=== PATIENT | male | born 1955 | race Caucasian/White ===

== ENCOUNTER 2018-03-15 07:50 | Emergency (ER) | payer MEDICAID ==
[~2018-03-15] VITALS: Ht 177.8 cm; Wt 88.6 kg
[2018-03-15 07:51] VITALS: BP 158/78; Ht 177.8 cm; Wt 88.6 kg
[2018-03-15] MEDS ORDERED: LISINOPRIL2.5 MG PO (07:55)
[2018-03-15] MEDS ORDERED: CHILDREN'S ASPI81 MG PO (07:55)
[2018-03-15] MEDS ORDERED: PERCOCET 5-3251 TAB PO (08:40)
[2018-03-15] MEDS ORDERED: FLOMAX0.4 MG PO (08:40)
[2018-03-15 08:41] LABS: APPEARANCE HAZY (CLEAR); BILIRUBIN NEGATIVE (NEGATIVE); COLOR DK YELLOW (YELLOW); GLUCOSE NEGATIVE (NEGATIVE); KETONE NEGATIVE (NEGATIVE); NITRITE NEGATIVE (NEGATIVE); PROTEIN TRACE mg/dL (NEGATIVE); SPECIFIC GRAVITY 1.025 (1.005-1.020); UROBILINOGEN NORMAL (NORMAL)
[2018-03-15 08:42] LABS: BACTERIA MODERATE /hpf (NONE SEEN); EPITHELIAL CELLS 0-5 /hpf (0-5); MUCUS >1+ /lpf (NONE SEEN); RED CELLS - URINE >50 /hpf (0-5); WHITE CELLS - URINE 0-5 /hpf (0-5)
== END 2018-03-15 08:51 | disposition home or self-care (01) ==
LOC: D.ER 07:50
PROVIDERS: Emergency Medicine
DX: N20.1 Calculus of ureter (principal); I10 Essential (primary) hypertension

== ENCOUNTER 2018-10-11 22:20 | Observation (INO) | payer MEDICARE ==
[~2018-10-11] VITALS: Ht 177.8 cm; Wt 88.6 kg
--- NOTE | ~2018-10-11 | HEMODYNAMI ---
PATIENT:JOSUÉ SUÁREZ MEDICAL RECORD: [id number] : 51 LOCATION:[facility] D212 ADMISSION DATE: 10/11/18 Generatedon:10/12/20189:23 Patient name: JOSUÉ SUÁREZ Patient #: [id number] SSN: DO B: 1955 Date of study: 10/12/2018 Page: Of Hemodynamic Procedure Report Patient Data Patient Demographics Procedure consent was obtained First Name: JOSUÉ Gender: Male Last Name: JOSE ARMANDO : 1955 Patient #: [id number] Age: 63 year(s) Race: Unknown Additional ID: [id number] Contact details [address]: [address] [place] [address] State: [place] City: [facility] Zip code: [address] Admission Admission Data Admission Date: 10/11/2018 Admission Time: 23:14 [facility] Weight (lbs.): 196.21 Weight (kg.): 89 Procedure Procedure Types Cath Procedure Diagnostic Procedure LHC LHC w/Coronaries w/Grafts FFR/IVUS Intra-Coronary IVUS Initial PCI Procedure AMI/SVG/ORDER SELECTOR PTCA or Stent SVG-BMS/URSULA Initial Procedure Description Procedure Date Procedure Date: 10/12/2018 Procedure Start Time: 8:57 Procedure End Time: 9:22 Procedure Staff Name Function Emory Gurrola MD Performing Physician Troy Meeks RT Monitor Heaven Thompson RT Scrub Darlin Valadez RN Nurse Procedure Data Cath Procedure Fluoroscopy Diagnostic fluoroscopy Total fluoroscopy Time: 5.8 time: 5.8 min min Diagnostic fluoroscopy Total fluoroscopy dose: 891 dose: 891 mGy mGy Contrast Material Contrast Material Type Amount (ml) Isovue 300 93 Entry Location Entry Primary Successful Side Size Upsize Upsize Entry Closure Succes sful Closure Location (Fr) 1 (Fr) 2 (Fr) Remarks Device Remarks Femoral Right 6 Fr Exoseal artery Short Estimated blood loss: 10 ml Diagnostic catheters Device Type Used For End Catheter Placement MULTIPACK Pigtail 5 Fr Procedure catheter MULTIPACK JL 4.0 5Fr Procedure catheter MULTIPACK 3DRC 5Fr Procedure catheter DIAGNOSTIC AR2 MOD 5 Fr Procedure catheter ([id number]) Procedure Complications No complications Procedure Medications Medication Administration Route Dosage 0.9% NaCl I.V. 100 ml/hr Oxygen etCO2 Nasal cannula 2 l/min Lidocaine 2% added to field 20 Heparin Flush Bag added to field 2 bags (1000units/500ml NS) Versed I.V. 2 mg Fentanyl I.V. 50 mcg Fentanyl I.V. 50 mcg Heparin Bolus I.V. 4000 units Hemodynamics Rest Heart Rate: 70 (bpm) Pressure Samples Time Site Value (mmHg) Purpose Heart Use Rate(bpm) 9:03 AO 142/81(108) Snapshot 76 Snapshots Pre Cath Intra NCS Post Cath Vital Signs Time Heart Resp SPO2 etCO2 NIBP (mmHg) Rhythm Pain Sedation Rate (ipm) (%) (mmHg) Status Level (bpm) 8:47:04 69 18 100 30 146/96(129) NSR 0 (11) 10(A) , No pain 8:51:22 64 12 100 29.8 151/91(140) NSR 0 (11) 10(A) , No pain 8:55:42 69 13 99 22.9 162/106(143) NSR 0 (11) 10(A) , No pain 8:59:54 80 13 98 36 152/99(126) NSR 0 (11) 10(A) , No pain 9:04:10 77 15 99 36 144/93(129) NSR 0 (11) 9(A) , No pain 9:08:24 75 10 100 36 142/93(130) NSR 0 (11) 9(A) , No pain 9:12:38 74 16 99 35.2 142/96(125) NSR 0 (11) 9(A) , No pain 9:16:54 81 11 100 23 147/100(135) NSR 0 (11) 10(A) , No pain 9:21:08 75 10 99 33.7 141/92(127) NSR 0 (11) 10(A) , No pain Medications Time Medication Route Dose Verified Delivered Reason Notes Effectiveness by by 8:46:01 0.9% NaCl I.V. 100 Emory Saeed used for ml/hr Izabela Valadez casting house worker 8:46:08 Oxygen etCO2 2 Emory Darlin used for Nasal l/min Izabela Valadez procedure cannula RN 8:46:12 Lidocaine 2% added 20ml Emory Cat for local to vial Izabela Gurrola MD anesthetic field 8:46:17 Heparin Flush added 2 Emory Rodriguezrey used for Bag to bags Izabela Gurrola MD procedure (1000units/500ml field NS) 8:56:34 Versed I.V. 2 mg Emory Darlin for sedation Izabela Valadez RN 8:56:40 Fentanyl I.V. 50 Emory Darlin for sedation mcg Izabela Valadez RN 9:00:52 Fentanyl I.V. 50 Emory Darlin for sedation mcg Izabela Valadez RN 9:12:00 Heparin Bolus I.V. 4000 Emory Darlin for verifi ed units Izabela Valadez anticoagulation with Dr. ELICEO Gurrola Procedure Log Time Note 8:24:34 Signed procedure consent form obtained from patient. 8:24:35 Time tracking: Regular hours (M-F 7:00 - 5:00) 8:24:39 Plan of Care:Hemodynamics will remain stable., Cardiac rhythm will remain stable., Comfort level will be maintained., Respiratory function will remain adequate., Patient/ family verbilizes understanding of procedure., Procedure tolerated without complication., Recovers from procedure without complications.. 8:28:27 Troy Meeks RT(R) sent for patient. Start room use. 8:40:24 Patient received from Med II to CCL 1 Alert and oriented. Tansferred to table in Supine position. 8:40:27 Warm blankets applied, and dori hugger turned on for patient comfort. 8:40:27 Correct patient and procedure confirmed by team. 8:40:28 ECG and BP/O2 sat monitors applied to patient. 8:45:52 Vital chart was started 8:46:01 0.9% NaCl 100 ml/hr I.V. was administered by Darlin Valadez RN; used for procedure; 8:46:08 Oxygen 2 l/min etCO2 Nasal cannula was administered by Darlin Valadez RN; used for procedure; 8:46:12 Lidocaine 2% 20ml vial added to field was administered by Emory Gurrola MD; for local anesthetic; 8:46:17 Heparin Flush Bag (1000units/500ml NS) 2 bags added to field was administered by Emory Gurrola MD; used for procedure; 8:55:24 Baseline sample Acquired. 8:55:27 Rhythm: sinus rhythm 8:55:28 Full Disclosure recording started 8:55:32 H&P Date Dictated: 10/12/2018 Within 30 days and on chart.. 8:55:32 Pre-procedure instructions explained to patient. 8:55:33 Pre-op teaching completed and patient verbalized understanding. 8:55:34 Family in patients room. 8:55:35 Patient NPO since Midnight. 8:55:36 Is the patient allergic to Iodine/contrast media? No. 8:55:38 Is patient on blood thinner?No 8:55:40 Patient diabetic? No. 8:55:43 Previous problem with sedation/anesthesia? No ? 8:55:43 Snore? Yes 8:55:44 Sleep apnea? No 8:55:45 Deviated septum? No 8:55:46 Opens mouth fully? Yes 8:55:47 Sticks out tongue? Yes 8:55:51 Airway obstruction? No ? 8:55:53 Dentures? No ? 8:55:55 Pre procedure: right dorsailis pedis pulse 1+ Palpable, but thready & weak; easily obliterated 8:55:57 Patient pain scale 3/10 Physician notified.. 8:56:03 IV patent on arrival in left forearm with 0.9% NaCl at O. 8:56:06 Lab results completed and on chart. 8:56:08 Right groin area was prepped with chlora-prep and draped in sterile fashion 8:56:09 Alarms reviewed by R. N. 8:56:09 Sharps counted by scrub and verified by R.N. 8:56:10 --------ALL STOP TIME OUT------ 8:56:11 Final Timeout: patient, procedure, and site verified with staff and physician. All members of the team are in agreement. 8:56:13 Right groin site verified by team. 8:56:17 Fire Safety Assessment: A--An alcohol-based skin anteseptic being used preoperatively., C--Open oxygen or nitrous oxide is being used., D--An ESU, laser, or fiber-optic light is being used. 8:56:20 Physical assessment completed. ASA score P 2 - A patient with mild systemic disease as per Emory Gurrola MD. 8:56:22 Sedation plan: IV Moderate Sedation Medication:Versed, Fentanyl 8:56:33 Use device set Femoral Dx 8:56:34 Versed 2 mg I.V. was administered by Darlin Valadez RN; for sedation; 8:56:35 Tegaderm 4 x 4 (1626W) opened to sterile field. 8:56:36 ACIST Manifold (60320) opened to sterile field. 8:56:36 ACIST Hand Control (55823) opened to sterile field. 8:56:38 ACIST Syringe (84099) opened to sterile field. 8:56:38 Bag Decanter (2002S) opened to sterile field. 8:56:39 Medline Cath Pack ([id number]) opened to sterile field. 8:56:39 DIAGNOSTIC WIRE .035 260cm J wire (300657) opened to sterile field. 8:56:40 Fentanyl 50 mcg I.V. was administered by Darlin Valadez RN; for sedation; 8:56:40 DIAGNOSTIC Multipack 5Fr catheter set (AF0350) opened to sterile field. 8:56:49 SHEATH 6FR [place] (BRT073) opened to sterile field. 8:56:56 Procedure started. 8:57:00 Local anesthetic to right femoral artery with Lidocaine 2% by Emory Gurrola MD.INITIAL ACCESS ONLY 8:58:02 A 6 Fr Short sheath was inserted into the Right Femoral artery 8:58:47 Patient Weight : 196.21 lbs 8:58:55 A MULTIPACK Pigtail 5 Fr catheter was advanced over the wire and used for Procedure. 8:59:29 LV angiography performed. 8:59:31 LV gram done using GLORIA 8:59:37 EF : 20 % 8:59:45 Injector settings: Ml/sec: 10, Volume: 20, 8:59:47 Catheter removed. 8:59:50 A MULTIPACK JL 4.0 5Fr catheter was advanced over the wire and used for Procedure. 9:00:27 LCA angiography performed. 9:00:52 Fentanyl 50 mcg I.V. was administered by Darlin Valadez RN; for sedation; 9:01:12 Catheter removed. 9:01:17 A MULTIPACK 3DRC 5Fr catheter was advanced over the wire and used for Procedure. 9:01:39 TRAN to LAD angiography performed. 9:02:28 SVG to RCA angiography performed. 9:02:30 Catheter removed. 9:02:45 A DIAGNOSTIC AR2 MOD 5 Fr catheter (807851Y) was advanced over the wire and used for Procedure. 9:03:25 RCA closed. 9:05:37 SVG to RCA angiography performed. 9:05:42 Catheter removed. 9:05:45 Use device set [facility] PCI 9:05:50 CHOICE PT Extra Support 182cm wire ([id number]) opened to sterile field. 9:05:52 INFLATOR Merit BasixCompak (EN9017) opened to sterile field. 9:05:58 [place] Eagley[place] IVUS Catheter (88780K) opened to sterile field. 9:07:09 GUIDE 6FR AR 2.0 SH catheter ([id number]) opened to sterile field. 9:07:54 6 Fr AR 2 SH guide catheter was inserted over the wire 9:08:03 CPTXS wire advanced. 9:08:25 Wire advanced across lesion. 9:08:29 IVUS catheter advanced over wire. 9:10:28 IVUS pass to SVG RCA lesion perfomed. 9:10:29 IVUS catheter removed over wire. 9:12:00 Heparin Bolus 4000 units I.V. was administered by Darlin Valadez RN; for anticoagulation; verified with Dr. Gurrola 9:14:11 Place stent Inflation Number: 1 A REBA RX 5.0 x 26 stent ([id number]) was prepped and advanced across the Aorta Right -> Dist RCA. The stent was deployed at 13 CHANELL for 0:10 (min:sec). 9:14:34 EXOSEAL 6Fr (EX600) opened to sterile field. 9:14:45 Stent catheter was removed intact over wire. 9:14:45 Wire removed. 9:14:46 Guide catheter removed. 9:14:54 Sheath removed intact; hemostasis achieved with Exoseal to the Right Femoral artery. 9:14:56 Procedure ended.(Physican Out) 9:15:22 Fluoroscopy time 05.80 minutes. 9:15:26 Fluoroscopy dose: 891 mGy 9:15: Flurop Dose total: 891 9:15:30 Contrast amount:Isovue 300 93ml. 9:15:32 Sharps counted by scrub and verified by R.N. 9:20:25 Insertion/operative site no bleeding no hematoma. 9:20:27 Post-op/insertion site Right Femoral artery dressed using a 4 x 4 and Tegaderm. 9:20:28 Post Procedure Pulses reassessed and unchanged 9:20:32 Post procedure rhythm: unchanged. 9:20:35 Estimated blood loss: 10 ml 9:20:37 Post procedure instruction explained to patient.Patient verbalizes understanding. 9:20:37 Patient needs reinforcement of post procedure teaching. 9:20:52 Procedure type changed to Cath procedure, Diagnostic procedure, LHC, LHC w/Coronaries w/Grafts, FFR/IVUS, Intra-Coronary IVUS Initial, PCI procedure, AMI/SVG/ORDER SELECTOR PTCA or Stent, SVG-BMS/URSULA Initial 9:20:53 Procedure and supply charges have been captured, reviewed, submitted and are correct. 9:20:56 Procedure Complication : No complications 9:21:19 Vital chart was stopped 9:21:20 See physician's report for complete and final results. 9:21:47 Report given to Pre/Post Procedure Room. 9:22:28 Patient transfered to Pre/Post Procedure Room with Bed. 9:22:36 Procedure ended. 9:22:36 Full Disclosure recording stopped 9:22:42 End room use (Document Last) Intervention Summary Intervention Notes Time ActionType Lesion and Equipment Used Action# Pressure Duration Attributes 9:14:11 Place stent Aorta Right REBA RX 5.0 x 1 13 00:10 -> Dist RCA 26 stent ([id number]) Device Usage Item Name Manufacture Quantity Catalog Number Hospital Part Current M inimal Lot# / Charge Number Stock Stock Serial# Code Tegaderm 4 x 4 3M 1 1626W [id number] 424596 667255 5 (1626W) ACIST Manifold Acist 1 22126 576763 076758 540826 5 (64226) Medical Systems Inc ACIST Hand Acist 1 09501 648653 791313 816969 5 Control Medical (80249) Systems Inc ACIST Syringe Acist 1 61677 512676 354434 271322 2 0 (09450) Medical Systems Inc Bag Decanter Microtek 1 2002S 238018 99834 134751 5 () Medical Inc. Medline Cath Medline 1 [id number] 646613 17363 929141 5 Pack ([id number]) DIAGNOSTIC [place] Oliver 1 659885 752313 389422 725732 3 0 WIRE .035 260cm J wire (461158) DIAGNOSTIC Cardinal 1 QQ5802 067267 28314 164155 3 0 Multipack 5Fr Health catheter set (IP9409) SHEATH 6FR Terumo 1 NCH006 599665 587617 560348 4 0 [place] (XTX159) MULTIPACK Cardinal 1 354753 5 Pigtail 5 Fr Health catheter MULTIPACK JL Cardinal 1 031767 5 4.0 5Fr Health catheter MULTIPACK 3DRC Cardinal 1 831397 5 5Fr catheter Health DIAGNOSTIC AR2 Cardinal 1 [id number] 372537 865135 985558 2 0 MOD 5 Fr Health catheter (345728R) CHOICE PT [place] 1 [id number] 131869 323348 964548 5 Extra Support Scientific 182cm wire ([id number]) INFLATOR Merit Merit 1 BV1444 764321 210921 379155 1 5 Runteq (EX6822) [place] 1 37316C 306069 847083 324953 8 [place] E[place] IVUS Catheter (89492Y) GUIDE 6FR AR Medtronic 1 [id number] 455656 60826 083222 1 2.0 SH catheter ([id number]) REBA RX 5.0 x Medtronic 1 [id number] 721843 2315928 156189 5 [id number] 26 stent ([id number]) EXOSEAL 6Fr Cardinal 1 EX600 105679 602839 314919 1 0 (EX600) Health Signature Audit [place] Stage Time Signature Unsigned Intra-Procedure 10/12/2018 Troy Meeks 9:22:57 AM RT(R) Signatures Monitor : Troy Meeks RT Signature : Date : Time : [facility] [address] [place] [address]
[~2018-10-11 22:20] MED LIST: CHILDREN'S ASPI81 MG PO; FLOMAX0.4 MG PO; LISINOPRIL2.5 MG PO; PERCOCET 5-3251 TAB PO
[2018-10-11 22:26] VITALS: BP 183/105
[2018-10-11 22:35] LABS: BASOPHILS 0.3 % (0-2); EOSINOPHILS 2.3 % (0-7); HEMATOCRIT 44.7 % (42.0-54.0); HEMOGLOBIN 15.7 g/dL (13.5-17.5); IMMATURE GRANULOCYTES 0.1 % (0-5); LYMPHOCYTES 48.1 % (15-50); MCH 32.6 pg (26.0-34.0); MCHC 35.1 g/dL (31.0-37.0); MCV 92.7 fL (80.0-100.0); MEAN PLATELET VOLUME 11.5 fL (7.4-10.4); MONOCYTES 9.8 % (2-11); NEUTROPHILS 39.4 % (40-80); PLATELET COUNT 185 10x3/uL (130-400); RBC 4.82 10x6/uL (4.20-6.10); RDW 12.9 % (11.5-14.5); WBC 7.7 10x3/uL (4.8-10.8)
[2018-10-11 22:45] LABS: INR 1.12 (0.85-1.17); PROTIME 13.9 SECONDS (11.6-15.0)
[2018-10-11 22:46] LABS: APTT 28.9 SECONDS (22.8-39.4)
[2018-10-11 22:49] LABS: ALBUMIN 3.9 g/dL (3.4-5.0); ALKALINE PHOSPHATASE 85 U/L (46-116); ALT (SGPT) 28 U/L (10-68); BILIRUBIN - TOTAL 0.61 mg/dL (0.2-1.3); CALC OSMOLALITY 289 mosm/kg (275-300); CARBON DIOXIDE 29.1 mmol/L (21.0-32.0); CHLORIDE - SERUM 105 mmol/L (98-107); CREATININE - SERUM 1.3 mg/dL (0.6-1.3); GLUCOSE 112 mg/dL (74-106); POTASSIUM - SERUM 3.9 mmol/L (3.5-5.1); PROTEIN - SERUM 7.4 g/dL (6.4-8.2); SODIUM 144 mmol/L (136-145); UREA NITROGEN 19 mg/dL (7-18); eGFR NON AFRICAN AMERICAN 59 mL/min (90-120)
[2018-10-11 22:57] LABS: CKMB 1.7 U/L (0.0-3.6); CREATINE KINASE 81 UL (21-232); MAGNESIUM - SERUM 2.2 mg/dL (1.8-2.4); TROPONIN-I < 0.017 ng/mL (0.000-0.060)
[2018-10-12 00:35] VITALS: BP 148/87
[2018-10-12 00:42] VITALS: BP 140/87; BMI 27.7
--- NOTE | 2018-10-12 03:30 | NUR ---
RECIEVED REPORT FROM ER. ARRIVEE TO THE FLOOR IN W/C WITH STAFF AND FAMILY. ALERT AND ORIENTED X4. IV TO LEFT AC SL.. STATES PAIN AT 3. REFUSES ANY PAIN MEDICATION. UP AD JOSE TO B/R. EXPLAINED CARDIAC CONSULT AND NPO STATUS. ORIENTED TO ROOM AND MEAL TIMES. ASSESSMENT COMPLETED. TE;EMETRY IN PLACE. DENIES ANY OTHER NEEEDS. WILL CONT. POC.
[2018-10-12 03:50] VITALS: BP 147/90
[2018-10-12 05:58] LABS: CKMB 99.3 U/L (0.0-3.6)
[2018-10-12 06:01] LABS: CREATINE KINASE 691 UL (21-232)
[2018-10-12 06:04] LABS: TROPONIN-I 26.026 ng/mL (0.000-0.060)
[2018-10-12 08:25] VITALS: BP 165/94
[2018-10-12 08:30] LABS: BASOPHILS 0.1 % (0-2); HEMATOCRIT 43.7 % (42.0-54.0); HEMOGLOBIN 15.2 g/dL (13.5-17.5); IMMATURE GRANULOCYTES 0.1 % (0-5); LYMPHOCYTES 19.9 % (15-50); MCH 32.3 pg (26.0-34.0); MCHC 34.8 g/dL (31.0-37.0); MCV 92.8 fL (80.0-100.0); MEAN PLATELET VOLUME 12.2 fL (7.4-10.4); NEUTROPHILS 69.9 % (40-80); PLATELET COUNT 172 10x3/uL (130-400); RBC 4.71 10x6/uL (4.20-6.10); WBC 9.5 10x3/uL (4.8-10.8)
--- NOTE | 2018-10-12 08:30 | NUR ---
PT TO LIFT MECHANIC VIA BED
[2018-10-12 08:49] LABS: CALC OSMOLALITY 281 mosm/kg (275-300); CALCIUM 8.6 mg/dL (8.5-10.1); CARBON DIOXIDE 22.3 mmol/L (21.0-32.0); CHLORIDE - SERUM 105 mmol/L (98-107); GLUCOSE 110 mg/dL (74-106); POTASSIUM - SERUM 3.9 mmol/L (3.5-5.1); SODIUM 140 mmol/L (136-145); UREA NITROGEN 18 mg/dL (7-18); eGFR NON AFRICAN AMERICAN 80 mL/min (90-120)
--- NOTE | 2018-10-12 09:36 | NUR ---
RECEIVED PT BACK FROM AIR HOIST OPERATOR VIA BED DROWSY ANSWERS APPROPRIATEY VSS RT GROIN SANDEEG C/D/I AT BEDSIDE NAD NOTED WILL CONTINUE TO MONITOR
[2018-10-12 11:36] LABS: CKMB 127.5 U/L (0.0-3.6)
[2018-10-12 11:43] LABS: CREATINE KINASE 861 UL (21-232); TROPONIN-I 34.863 ng/mL (0.000-0.060)
--- NOTE | 2018-10-12 14:00 | NUR ---
BEDREST UP PT SITTNG UP RT GROIN DRSG C/D/I RT PEDAL PULSE PALPABLE PT DENIES ANY NEEDS OR DISCOMFORT AT THIS TIME
[2018-10-12 14:03] VITALS: Ht 177.8 cm; Wt 88.6 kg
[2018-10-12 15:41] VITALS: BP 132/81
--- NOTE | 2018-10-12 19:24 | NUR ---
RECIEVED SITTING UP ON SIDE OF BED EATING WITH HIS SPOUSE. ALERT AND ORIENTED X4. DSG TO RIGHT GROIN CDI. DENIES ANY PAIN OR NEEDS AT THISTIME. WILL CONT. POC.
[2018-10-12 20:00] VITALS: BP 122/77
[2018-10-13] VITALS: BP 126/75
[2018-10-13 04:00] VITALS: BP 120/75
[2018-10-13 05:23] LABS: BASOPHILS 0.2 % (0-2); EOSINOPHILS 1.3 % (0-7); HEMATOCRIT 42.5 % (42.0-54.0); HEMOGLOBIN 14.9 g/dL (13.5-17.5); IMMATURE GRANULOCYTES 0.1 % (0-5); LYMPHOCYTES 20.6 % (15-50); MCH 32.4 pg (26.0-34.0); MCHC 35.1 g/dL (31.0-37.0); MCV 92.4 fL (80.0-100.0); MEAN PLATELET VOLUME 11.9 fL (7.4-10.4); NEUTROPHILS 64.8 % (40-80); PLATELET COUNT 164 10x3/uL (130-400); RDW 13.1 % (11.5-14.5); WBC 8.4 10x3/uL (4.8-10.8)
[2018-10-13 05:44] LABS: ANION GAP 10.6 mmol/L (8-16); CALCIUM 8.4 mg/dL (8.5-10.1); CREATININE - SERUM 1.2 mg/dL (0.6-1.3); POTASSIUM - SERUM 3.8 mmol/L (3.5-5.1)
[2018-10-13 05:46] LABS: CARBON DIOXIDE 29.2 mmol/L (21.0-32.0)
[2018-10-13 07:35] VITALS: BP 113/71
--- NOTE | 2018-10-13 07:45 | NUR ---
ASSESSMENT COMPLETED. ALERT AND ORIENTED. TELEMERTY SHOWS SR. LEFT AC SL. RIGHT GROIN SOFT WITH DRSG DRY AND INTACT. NO NEEDS VOICED
--- NOTE | 2018-10-13 09:17 | NUR ---
RESTING QUIETLY NAD NOTED
[2018-10-13 10:50] VITALS: BP 117/71
[2018-10-13] MEDS ORDERED: PLAVIX75 MG PO (12:24)
[2018-10-13] MEDS ORDERED: PRAVACHOL20 MG PO (12:25)
[2018-10-13] MEDS ORDERED: COREG 3.1253.125 MG PO (12:25)
--- NOTE | 2018-10-13 12:57 | NUR ---
PT DISCHARGED. IV DCD WITH TIP INTACT. INSTRUCTIONS GIVEN TO PT. TO PRIVATE CAR PER WHEEL CHAIR.
--- NOTE | 2018-10-14 10:38 | MORECARE ---
CASE MANAGEMENT DISCHARGE SUMMARY PATIENT: JOSUÉ SUÁREZ UNIT: [id number] ADM DATE: 10/11/18 AGE: 63 : [birth year] SEX: M ROOM/BED: D.2122 AUTHOR: IMELDA MCKEE PHYSICIAN: REFERRING PHYSICIAN: SCARLETT CARRASCO MD DATE OF SERVICE: 10/14/18 Discharge Plan Patient Name: JOSUÉ SUÁREZ [facility] [facility] 1955 Planned Disposition: Home Anticipated Discharge Date: 10/14/18 Discharge Date: 10/13/2018 Expected LOS: 3 Initial Reviewer: [email or web address] Initial Review Date: 10/14/2018 Generated: 10/14/18 11:38 am Patient Name: JOSUÉ SUÁREZ Page 51443 at 1038 All edits/amendments must be made on the electronic document DICTATION DATE: 10/14/18 1038 COMPOUND COATING MACHINE OFFBEARER: JORGE 10/14/18 1038 RPT#: [id number] DC DATE:10/13/18 STATUS: DIS IN [facility] [address] [place] [address] END OF REPORT
--- NOTE | 2018-10-15 10:45 | OP ---
PATIENT NAME: JOSUÉ SUÁREZ MEDICAL RECORD: [id number] :51 LOCATION:D.M2 D.2122 ADMISSION DATE:10/11/18 SURGEON: RONALD LIPSCOMB MD DATE OF OPERATION: 10/12/2018 PROCEDURES: 1. PTCA stent vein graft to RCA. 2. Intravascular ultrasound. 3. Left heart catheterization. 4. Selective coronary angiography. 5. Vein graft angiography. 6. TRAN angiography. 7. Left ventriculogram. INDICATION: Non-Q-wave myocardial infarction. DESCRIPTION OF PROCEDURE: After informed consent was obtained and after a detailed explanation of risks, benefits as well as alternative therapies, the patient elected to proceed with angiogram and angioplasty. The right femoral area was prepped and draped in normal sterile fashion. Right femoral artery was cannulated via modified Seldinger technique with placement of 6-English sheath. All catheters exchanged through this sheath. FINDINGS: Left ventriculogram was performed in standard 30-degree GLORIA view, reveals anteroapical hypokinesis. Overall ejection fraction estimated at 25%. SELECTIVE CORONARY ANGIOGRAPHY: 1. Left main is with no significant angiographic disease. 2. Left circumflex has no significant angiographic disease. 3. Left anterior descending has previously placed stents with 80% stenosis after the previously placed stents. 4. TRAN to the distal LAD is widely patent. Distal LAD is widely patent. 5. The right coronary has previously placed stents, these are closed at the ostium. 6. Vein graft to the right coronary is patent; however, there is 75% stenosis in the proximal shaft of the vein graft confirmed by intravascular ultrasound. PTCA STENT OF THE VEIN GRAFT TO THE RCA: The stent used was a 5.0 x 26-mm Cuau[place]emoc. Result was 0% residual stenosis. OVERALL IMPRESSION: Successful percutaneous transluminal coronary angioplasty stent of the vein graft to the right coronary artery going from greater than 75% initial stenosis to 0% residual. TRANSINT:[id number] Voice Confirmation ID: [id number] DOCUMENT ID: [id number] RONALD LIPSCOMB MD at 1045 CC: [id number] DICTATION DATE: 10/12/18919 PEPPER PICKER: 10/12/18940 DIS IN 10/13/18 [place] [address]
--- NOTE | 2018-10-15 10:45 | CN ---
PATIENT NAME:JOSUÉ SUÁREZ MEDICAL RECORD: [id number] : 51 LOCATION:. D.2122 ADMIT DATE: 10/11/18 ACCOUNT: [id number] CONSULTING PHYSICIAN: RONALD LIPSCOMB MD REFERRING PHYSICIAN: SCARLETT CARRASCO MD DATE OF CONSULTATION: 10/12/2018 CARDIOLOGY CONSULTATION DATE OF SERVICE: 10/12/2018 DIAGNOSES: 1. Non-Q-wave myocardial infarction. 2. Coronary artery disease. 3. Status post coronary bypass graft surgery. 4. Hypertension. HISTORY OF PRESENT ILLNESS: This is a gentleman with a past history of coronary artery disease, status post coronary artery bypass graft surgery 2-1/2 years ago, who presents last night with chest discomfort. His troponin is now elevated. REVIEW OF SYSTEMS: The patient reports easy bruising but reports no swollen glands. The patient reports no fever, no night sweats, no significant weight gain, no significant weight loss. No significant exercise tolerance. The patient reports no dry eyes, no irritation, no vision change. Patient reports no difficulty hearing and no ear pain. Patient reports no frequent nose bleeds or nose and sinus problems. Patient reports on arm pain on exertion. No shortness of breath while lying down. No history of heart murmur. Patient reports no cough, no wheezing or coughing up blood. Patient reports no abdominal pain, no vomiting. Normal appetite. No diarrhea and not vomiting blood. No nausea and no constipation. Patient reports no incontinence. No difficulty urinating. No hematuria. No increased frequency. Patient reports no muscle aches. No weakness, no arthralgias, no back pain. No swelling of the extremities. Patient reports no abnormal mole, no jaundice, no rashes. Reports no loss of consciousness. No weakness and no numbness. No seizures, dizziness, or headaches. The patient reports no depression, no sleep disturbance, feeling safe in a relationship and no alcohol abuse. Patient reports on fatigue. Reports no runny nose or sinus pressure. No itching, no hives, and no frequent sneezing. PHYSICAL EXAMINATION: GENERAL APPEARANCE: Well-nourished, well-developed, appears stated age. Level of distress, comfortable. PSYCHIATRIC: Mental status, alert, normal affect. Orientation, oriented to time, place and person. EYES: Lids and conjunctiva, noninjected. No discharge, no pallor. ENT: Lips, teeth, gums, normal dentition. Oropharynx, no cyanosis, no pallor. NECK: Carotid arteries, bilateral normal upstroke, no bruits, no thrills. JUGULAR VEINS: No jugular venous pressure or distention. CERVICAL LYMPH NODES: Nontender, nonenlarged. THYROID: Not enlarged. Nontender. No nodules. LUNGS: Respiratory effort, unlabored. CHEST: Normal curvature. No thoracic deformity. No chest wall tenderness. Percussion, resonant. Auscultation, clear. No wheezes, no rales, no rhonchi. CONSULT REPORT [id number] JOSUÉ SUÁREZ CARDIOVASCULAR: Precordial exam, nondisplaced. No heaves or pericardial thrills. Rate and rhythm, regular. Heart sounds, normal S1, normal S2. No S3, no gallop, no rub. Systolic murmur, not heard. Diastolic murmur, not heard. EXTREMITIES: No cyanosis, no edema. Peripheral pulses, full and equal in all extremities, except as noted. No bruits appreciated. ABDOMEN: Soft, nondistended. Normal aorta. No bruit. Nontender. No masses. Liver, nontender, no hepatomegaly. Spleen, nontender, no splenomegaly. MUSCULOSKELETAL: No joint tenderness. No joint swelling. No erythema. NEUROLOGICAL: Normal gait, normal strength, normal tone. SKIN: Warm and dry. OVERALL IMPRESSION: Non-Q-wave myocardial infarction. At this time, we will load him on Plavix and proceed with coronary angiography. Further care depends upon the findings of the angiography. TRANSINT:[id number] Voice Confirmation ID: [id number] DOCUMENT ID: [id number] RONALD LIPSCOMB MD at 1045 CC: [id number] DICTATION DATE: 10/12/18 0844 CORPORATE EVENTS DIRECTOR: 10/12/18 0852 DIS IN 10/13/18 [id number] [place] [address]
--- NOTE | 2018-10-15 10:45 | DS ---
PATIENT:JOSUÉ SUÁREZ :51 MEDICAL RECORD: [id number] DISCHARGE SUMMARY ADMISSION DATE: 10/11/18 DISCHARGE DATE: 10/13/18 DIAGNOSES: 1. Non-Q-wave myocardial infarction. 2. Coronary artery disease. 3. Percutaneous transluminal coronary angioplasty stent vein graft to right coronary artery. 4. Cardiomyopathy. 5. Hyperlipidemia. HOSPITAL COURSE: This is a gentleman who presents with chest pain, shortness of breath, found to have an elevated troponin compatible with non-Q-wave myocardial infarction, underwent cardiac catheterization revealing critical disease of the vein graft to the RCA, underwent successful PTCA stent of this. No further anginal symptomatology, no significant dysrhythmias or heart failure, discharged home with the addition of Coreg, pravastatin, aspirin and Plavix to his medical regimen. JILLIAN inhibitor was not undertaken secondary to hypotension. Will follow up with his clinical appeals specialist who is Dr. Zaragoza in [place] within the next month. TRANSINT:[id number] Voice Confirmation ID: [id number] DOCUMENT ID: [id number] RONALD LIPSCOMB MD at 1045 CC: [id number] DICTATION DATE: 10/13/18 1034 HUB BORER: 10/13/18 2326 DIS IN 10/13/18 [id number] [place] [address]
--- NOTE | 2018-10-15 10:45 | EC ---
PATIENT:JOSUÉ SUÁREZ DATE OF SERVICE: 10/11/18 SEX: M MEDICAL RECORD: [id number] DATE OF : [birth year] LOCATION:D.M2 D.212 AGE OF PATIENT: 63 ADMISSION DATE: 10/11/18 REFERRING PHYSICIAN: INTERPRETING PHYSICIAN: RONALD GURROLA MD ECHOCARDIOGRAM REPORT ECHO CHARGES 4 ECHO COMPLETE Date: 10/12/18 CLINICAL DIAGNOSIS: [place] HX OF CAD/CABG ECHOCARDIOGRAPHIC MEASUREMENTS (adult normal given) AC root (d.<3.7cm) 3.9 cm LV Septum d (<1.2 cm> 1.3 cm Valve Excursion 2.1 cm LV Septum (systole) 1.5 cm Left Atria (s.<4.0cm> 4.0 cm LVPW d(<1.2cm) 1.5 cm RV (d.<2.3cm) 4.5 cm LVPW (sytole) 1.6 cm LV diastole(<5.6CM) 5.0 cm MV E-F(>70mm/sec) cm LV systole 4.1 cm LVOT Diameter 2.3 cm MV exc.(>10mm) 1.0 cm Est.ejection fraction (50-75%) % DOPPLER: LVIT cm/sec A 51.0 cm/sec E 26.0 cm/sec LA cm/sec RVSP 25 mmHg LVOT 80 cm/sec AOP1/2T m/s Asc. Ao 104 cm/sec RVOT 64 cm/sec RA cm/sec PA 86 cm/sec AV Gradient Peak 4.35 mmHg AV Mean 2.33 mmHg AV Area 3.5 cm MV Gradient Peak 1.15 mmHg MV Mean 0.42 mmHg MV Area cm COMMENTS: [employer] Sales Consultant: Aleena BRANDT Director Strategic Planning: 1 Dr. Gurrola TAPE# PACS Pericardial Effusion N DATE OF SERVICE: 10/13/2018 ECHOCARDIOGRAM FINDINGS: 1. Left ventricular chamber size is within normal limits. Left ventricular systolic function is mildly reduced, overall ejection fraction in the 40% range. There is definite anteroapical hypokinesis. 2. Left atrium, right atrium, and right ventricle chamber sizes are within normal limits. ECHOCARDIOGRAM REPORT [id number] JOSUÉ SUÁREZ 3. Valvular structures have normal structure and motion. 4. Doppler interrogation reveals trace tricuspid regurgitation, no other valvular insufficiency or stenosis. Pulmonary systolic pressure is estimated at 25 mmHg. 5. No evidence of pericardial effusion or left ventricular thrombus. TRANSINT:[id number] Voice Confirmation ID: [id number] DOCUMENT ID: [id number] RONALD GURROLA MD at 1045 CC: [id number] DICTATION DATE: 10/13/18 1021 PIPE BOWL PAINT TRIMMER: 10/13/18 1220 DIS IN 10/13/18 [place] [id number] [place] [id number]
== END 2018-10-13 12:59 | disposition home or self-care (01) ==
LOC: D.ER 22:20 → D.M2 23:14 → OBSVTIME 23:14 → D.M2 10-13 12:59
PROVIDERS: Emergency Medicine; Family Medicine; Internal Medicine Interventional Cardiology; ADMIT Family Medicine
DX: I21.4 Non-ST elevation (NSTEMI) myocardial infarction (principal); I25.10 Atherosclerotic heart disease of native coronary artery without angina pectoris; I10 Essential (primary) hypertension; I42.9 Cardiomyopathy, unspecified; E78.5 Hyperlipidemia, unspecified
CPT/HCPCS: 92937; 93459; 92978; C9600

== ENCOUNTER 2019-02-18 21:13 | Emergency (ER) | payer MEDICARE ==
[~2019-02-18] VITALS: Ht 177.8 cm; Wt 90.9 kg
[~2019-02-18 21:13] MED LIST changes: +COREG 3.1253.125 MG PO; +PLAVIX75 MG PO; +PRAVACHOL20 MG PO
[2019-02-18 21:28] VITALS: Ht 177.8 cm; Wt 90.9 kg
[2019-02-18] MEDS ORDERED: HYDROCODON-ACE1 EAC2 PO (23:11)
[2019-02-19 01:03] VITALS: BP 131/77
== END 2019-02-18 23:15 | disposition home or self-care (01) ==
LOC: D.ER 21:13
DX: S01.21XA Laceration without foreign body of nose, initial encounter (principal); W21.07XA Struck by softball, initial encounter; Y93.89 Activity, other specified; Y92.89 Other specified places as the place of occurrence of the external cause; S02.2XXA Fracture of nasal bones, initial encounter for closed fracture